=== PATIENT | male | born 1980 | race Caucasian/White ===

== ENCOUNTER 2016-12-20 16:42 | Emergency (ER) | payer SELFPAY ==
[~2016-12-20] VITALS: Ht 177.8 cm; Wt 74.5 kg
[2016-12-20 16:50] VITALS: BP 126/91; PULSE 80; RESP 16; TEMP 98.6; O2SAT 97
[2016-12-20 17:16] LABS: GLUCOSE,URINE NEG (NEG); KETONE, URINE 15 mg/dL (NEG); NITRITE,URINE NEG (NEG)
[2016-12-20 17:18] LABS: BLOOD, URINE MOD (NEG)
[2016-12-20 17:34] LABS: METHOD OF COLLECTION CLEAN CATCH
[2016-12-20 17:35] LABS: URINE COLOR YELLOW (YELLW/STRAW)
[2016-12-20 17:38] LABS: BACTERIA, URINE FEW /hpf; COMMENT (UR) CULT NOT INDICATED; COMMENT2 (UR) MUCOUS PRESENT; CULTURE IF INDICATED CULT NOT INDICATED; SQUAMOUS EPITHELIAL CELL URINE 0-5 /hpf (0-5)
[2016-12-20] MEDS ORDERED: metroNIDAZOLE 500 MG TAB PO ONE (18:15)
[2016-12-20] MEDS ORDERED: AZITHROMYCIN 250 MG TAB PO ONE (18:15)
[2016-12-20] MEDS ORDERED: ONDANSETRON ODT 4 MG TAB PO/SL ONE (18:15)
[2016-12-20] MEDS ORDERED: LIDOCAINE HCL 1% 50 ML VIAL XX ONE (18:15)
[2016-12-20] MEDS ORDERED: cefTRIAXone 250 MG VIAL IM ONE (18:15)
--- NOTE | 2016-12-20 18:33 | PD ---
HPI Chief Complaint: Complaint Time Seen by Provider: 18:00 Travel History International Travel<30 days: No Contact w/Intl Traveler<30days: No Traveled to known affect area: No History of Present Illness HPI Patient is a 36-year-old male who presented to the emergency department for evaluation of penile discharge, dysuria. Patient states this has been ongoing for approximately one week. He reports recent unprotected sexual contact. He denies any fevers, chills, nausea, vomiting, abdominal pain, chest pain. He denies any lesions or abrasions on his penis. PFSH Past Medical History Medical History: Denies Significant Hx Hx Anticoagulant Therapy: No Cardiovascular Problems: No Chemotherapy: No Cerebrovascular Accident: No Diabetes: No Diminished Hearing: No Respiratory: No Immunizations Current: Yes Past Surgical History Other Surgery: Yes (BILATERAL INGUINAL HERNIA REPAIR CHILD) Social History Alcohol Use: Yes (OCC) Tobacco Use: Yes (11/13 PPD) Substance Use: Yes Allergies-Medications (Allergen,Severity, Reaction): Coded Allergies: No Known Allergies (Unverified , 12/20/16) Per pt. Reported Meds & Prescriptions Reported Meds & Active Scripts Active No Active Prescriptions or Reported Medications Review of Systems Except as stated in HPI: all other systems reviewed are Neg Genitourinary: Positive: Dysuria, Discharge Physical Exam Narrative GENERAL: Well-nourished, well-developed patient. SKIN: Warm and dry. HEAD: Normocephalic. EYES: No scleral icterus. No injection or drainage. NECK: Supple, trachea midline. No JVD or lymphadenopathy. CARDIOVASCULAR: Regular rate and rhythm without murmurs, gallops, or rubs. RESPIRATORY: Breath sounds equal bilaterally. No accessory muscle use. GASTROINTESTINAL: Abdomen soft, non-tender, nondistended. MUSCULOSKELETAL: No cyanosis, or edema. BACK: Nontender without obvious deformity. No CVA tenderness. Data Data Last Documented VS Vital Signs Date Time Temp Pulse Resp B/P Pulse Ox O2 Delivery O2 Flow Rate FiO2 12/20/16 16:50 98.6 80 16 126/91 97 Orders Urinalysis - C+S If Indicated (12/20/16 16:58) Gc And Chlamydia Pcr (12/20/16 17:51) Azithromycin (Zithromax) (12/20/16 18:15) Ceftriaxone Inj (Rocephin Inj) (12/20/16 18:15) Metronidazole (Flagyl) (12/20/16 18:15) Ondansetron Odt (Zofran Odt) (12/20/16 18:15) Lidocaine 1% Inj (50 Ml) (Xylocaine 1% I (12/20/16 18:15) Labs Laboratory Tests Test 12/20/16 16:55 Urine Collection Type CLEAN CATCH Urine Color YELLOW Urine Turbidity CLEAR Urine pH 6.0 Urine Specific [place] 1.027 Urine Protein 30 mg/dL Urine Glucose (UA) NEG mg/dL Urine Ketones 15 mg/dL Urine Occult Blood MOD Urine Nitrite NEG Urine Bilirubin NEG Urine Leukocyte Esterase NEG Urine RBC 4-9 /hpf Urine WBC 6-8 /hpf Urine Squamous Epithelial 0-5 /hpf Cells Urine Bacteria FEW /hpf Microscopic Urinalysis Comment CULT NOT INDICATED Urine Collection Time 1655 [facility] Medical Decision Making Medical Screen Exam Complete: Yes Emergency Medical Condition: Yes Interpretation(s) Vital Signs Date Time Temp Pulse Resp B/P Pulse Ox O2 Delivery O2 Flow Rate FiO2 12/20/16 16:50 98.6 80 16 126/91 97 Differential Diagnosis STD versus UTI versus dysuria versus other Narrative Course Patient is a 36-year-old male who presented to the emergency for evaluation of dysuria and penile discharge that is been ongoing for approximately one week. Patient had unprotected sex 2 weeks ago. Patient was treated empirically for trichomoniasis, gonorrhea, chlamydia. He was advised to follow up with [facility] for further STD screening for HIV herpes etc. Advised to avoid alcohol intake for at least 40-72 hours to avoid interaction with metronidazole. Patient was advised that this can make him nauseated and cause vomiting. Patient was understanding of these instructions. Patient is stable for discharge. Diagnosis Primary Impression: Potential exposure to STD Additional Impressions: Dysuria Penile discharge Referrals: [facility] Dept. Patient Instructions: General Instructions, Safe Sex (ED), Sexually Transmitted Diseases (ED) Additional Instructions: Follow-up with your primary doctor Return to emergency department for any new or worsening symptoms Follow up with [facility] for further STD screening Avoid sexual contact with partner until they are either tested or treated. You will be notified regarding test results Med/Other Pt SpecificInfo: No Change to Meds Scripts No Active Prescriptions or Reported Meds Disposition: 01 DISCHARGE HOME Condition: Stable Michelle Dobbins [employer] Dec 20, 2016 18:33
[2016-12-21 01:10] LABS: CHLAMYDIA PCR NOT DETECTED (NOT DETECT); NEISSERIA PCR NOT DETECTED (NOT DETECT)
== END 2016-12-20 19:01 | disposition home or self-care (01) ==
LOC: PHEFT 16:42
DX: R30.0 Dysuria (principal); R36.9 Urethral discharge, unspecified
CPT/HCPCS: 81001; 87491; 87591; 96372; 99283; J0696